=== PATIENT | male | born 1960 | race Caucasian/White ===

== ENCOUNTER 2024-10-01 00:41 | Emergency (ER) | payer OTHER ==
[2024-10-01] MEDS: SODIUM CHLORIDE 0.9% 500 ML 500 ML IV STA (01:05)
[2024-10-01] MEDS: FAMOTIDINE 20 MG/2 ML VIAL IV STA (01:05)
[2024-10-01] MEDS: methylPREDNISolone SOD SUCCI 125 MG/2 ML VIAL IV STA (01:05)
[2024-10-01] MEDS: diphenhydrAMINE 50 MG/ML 1 ML VIAL IVP STA (01:05)
--- NOTE | 2024-10-01 02:43 | ED ---
Allergic Reaction HPI - General Chief complaint: Allergic Reaction Stated complaint: Allergic Reaction Time Seen by Provider: 10/01/24 00:50 Source: patient Mode of arrival: ambulatory Limitations: no limitations - History of Present Illness Initial Comments: 64-year-old male presents to the emergency department after a bee sting. Patient was asleep while camping. He awoke to pain in his neck. Realized that the patient had been stung by bee. He has a welt to the right lateral aspect of his neck. He states that he is highly allergic and therefore he did use his EpiPen and presented immediately to the hospital. Patient denies syncope or vomiting. Does admit to difficulty breathing however is speaking in full sentences. He did not take any other medications prior to coming in. No chest pain. No other alleviating, precipitating or modifying factors - Related Data Allergies Allergy/AdvReac Type Severity Reaction Status Date / Time bee venom protein (honey bee) Allergy Anaphylaxis Verified 10/01/24 00:45 Review of Systems ROS Statement: Those systems with pertinent positive or pertinent negative responses have been documented in the HPI. ROS Other: All systems not noted in ROS Statement are negative. Past Medical History Past Medical History: No Reported History History of Any Multi-Drug Resistant Organisms: None Reported Past Surgical History: No Surgical Hx Reported Past Psychological History: No Psychological Hx Reported Smoking Status: Never smoker Past Alcohol Use History: Occasional Past Drug Use History: None Reported General Exam Limitations: no limitations General appearance: alert, in no apparent distress Head exam: Present: atraumatic, normocephalic, normal inspection Eye exam: Present: normal appearance, PERRL, EOMI. Absent: scleral icterus, conjunctival injection, periorbital swelling ENT exam: Present: other (Welts noted to the right posterior neck measuring 3 cm. No stinger appreciated) Neck exam: Present: normal inspection. Absent: tenderness, meningismus, lymphadenopathy Respiratory exam: Present: normal lung sounds bilaterally. Absent: respiratory distress, wheezes, rales, rhonchi, stridor Cardiovascular Exam: Present: regular rate, normal rhythm, normal heart sounds. Absent: systolic murmur, diastolic murmur, rubs, gallop, clicks GI/Abdominal exam: Present: soft, normal bowel sounds. Absent: distended, tenderness, guarding, rebound, rigid Extremities exam: Present: normal inspection, full ROM, normal capillary refill. Absent: tenderness, pedal edema, joint swelling, calf tenderness Back exam: Present: normal inspection Neurological exam: Present: alert, oriented X3, CN II-XII intact Psychiatric exam: Present: normal affect, normal mood Skin exam: Present: warm, dry, intact, normal color. Absent: rash Course Vital Signs 10/01/24 10/01/24 10/01/24 00:42 01:44 02:46 Temperature 97.9 F 97.8 F Pulse Rate 82 72 69 Respiratory 18 18 17 Rate Blood Pressure 128/71 126/72 108/79 O2 Sat by Pulse 96 96 96 Oximetry Medical Decision Making - Medical Decision Making Was pt. sent in by a medical professional or institution (, PA, WASHER REPAIRMAN, urgent care, hospital, or longterm...) When possible be specific @ -No Did you speak to anyone other than the patient for history (EMS, parent, family, police, friend...)? What history was obtained from this source @ -I spoke with the for history Did you review nursing and triage notes (agree or disagree)? Why? @ -I reviewed and agree with nursing and triage notes Were old charts reviewed (outside hosp., previous admission, EMS record, old EKG, old radiological studies, urgent care reports/EKG's, longterm records)? Report findings @ -No old charts were reviewed Differential Diagnosis (chest pain, altered mental status, abdominal pain women, abdominal pain men, vaginal bleeding, weakness, fever, dyspnea, syncope, headache, dizziness, GI bleed, back pain, seizure, CVA, palpatations, mental health, musculoskeletal)? @ -Insect bite, hymenoptera sting, anaphylaxis EKG interpreted by me (3pts min.). @ -Yes and demonstrates sinus rhythm with a rate of 79. MT interval 177. QRS 100. QTc of 403. No acute ST segment elevations or depressions X-rays interpreted by me (1pt min.). @ -None done CT interpreted by me (1pt min.). @ -None done U/S interpreted by me (1pt. min.). @ -None done What testing was considered but not performed or refused? (CT, X-rays, U/S, labs)? Why? @ -None What meds were considered but not given or refused? Why? @ -None Did you discuss the management of the patient with other professionals (professionals i.e. , PA, WASHER REPAIRMAN, lab, RT, psych nurse, social work msw, supervisor paste plant, teacher, business practices officer, rn field case manager)? Give summary @ -No Was smoking cessation discussed for >3mins.? @ -No Was critical care preformed (if so, how long)? @ -No Were there social determinants of health that impacted care today? How? (Homelessness, low income, unemployed, alcoholism, drug addiction, transportation, low edu. Level, literacy, decrease access to med. care, assisted, rehab)? @ -No Was there de-escalation of care discussed even if they declined (Discuss DNR or withdrawal of care, Hospice)? DNR status @ -No What co-morbidities impacted this encounter? (DM, HTN, Smoking, COPD, CAD, Cancer, CVA, ARF, Chemo, Hep., AIDS, mental health diagnosis, sleep apnea, morbid obesity)? @ -None Was patient admitted / discharged? Hospital course, mention meds given and route, prescriptions, significant lab abnormalities, going to OR and other pertinent info. @ -Upon arrival patient seen and evaluated in bed 2. Thorough history and physical exam was performed. Patient is speaking in full sentences. He is placed on continuous pulse ox and cardiac monitoring. IV was established. He was given normal saline, Benadryl, Pepcid and a dose of steroids. He was monitored in the ER for 2 hours and has no progression of his symptoms. The welt on the side of his neck has diminished significantly. Patient will be discharged home with prescriptions for an EpiPen, Benadryl, prednisone and Pepcid for the next couple days. Follow-up with your doctor in 2 to 4 days and return for any new or worsening symptoms. Patient was agreeable to plan and was discharged in stable condition Undiagnosed new problem with uncertain prognosis? @ -No Drug Therapy requiring intensive monitoring for toxicity (Heparin, Nitro, Insulin, Cardizem)? @ -No Were any procedures done? @ -No Diagnosis/symptom? @ -Acute hymenoptera sting Acute, or Chronic, or Acute on Chronic? @ -Acute Uncomplicated (without systemic symptoms) or Complicated (systemic symptoms)? @ -Complicated Side effects of treatment? @ -No Exacerbation, Progression, or Severe Exacerbation? @ -No Poses a threat to life or bodily function? How? (Chest pain, [place], [place], pneumonia, PE, COPD, DKA, ARF, appy, cholecystitis, CVA, Diverticulitis, Homicidal, Suicidal, threat to staff... and all critical care pts) @ -No Disposition Clinical Impression: Hymenoptera allergy Disposition: HOME SELF-CARE Condition: Stable Instructions (If sedation given, give patient instructions): Insect Bite or Sting (ED) Additional Instructions: You may take Benadryl 50 mg every 6 hours. Next dose would be at 7 am. Take Pepcid and prednisone twice a day starting tomorrow morning. Use the epi-pen if needed for throat swelling. Return for any new or worsening symptoms. Is patient prescribed a controlled substance at d/c from ED?: No Referrals: Dave Issa MD [Primary Care Provider] - 1-2 days Time of Disposition: 02:43
[2024-10-01 02:48] VITALS: BP 108/79; PULSE 69; RESP 17; TEMP 97.8
== END 2024-10-01 02:56 | disposition home or self-care (01) ==
LOC: EC 00:41
DX: T63.441A Toxic effect of venom of bees, accidental (unintentional), initial encounter (principal); Z91.030 Bee allergy status
CPT/HCPCS: 93005; 99283; 96374; 96375; 96361; J1200; J2919; J1308